=== PATIENT | male | born 1960 | race Caucasian/White ===

== ENCOUNTER 2018-04-21 08:00 | Outpatient (CLI) | payer OTHER ==
[2018-04-21 17:22] LABS: BASOPHILS % (AUTO) 0.7 %; EOSINOPHILS # (AUTO) 0.2 10^3/uL (0.0-0.7); HGB - HEMOGLOBIN 14.2 g/dL (14.0-18.0); LYMPHOCYTES # (AUTO) 1.6 10^3/uL (1.5-3.5); LYMPHOCYTES % (AUTO) 26.7 %; MEAN CORPUSCULAR HEMOGLOBIN 29.6 pg (27.0-31.0); MEAN CORPUSCULAR HGB CONC 32.3 g/dL (32.0-36.0); MEAN CORPUSCULAR VOLUME 91.7 fL (80.0-94.0); MEAN PLATELET VOLUME 8.8 fL (7.4-11.4); MONOCYTES # (AUTO) 0.4 10^3/uL (0.0-1.0); MONOCYTES % (AUTO) 6.2 %; NEUTROPHILS # (AUTO) 3.8 10^3/uL (1.5-6.6); NEUTROPHILS % (AUTO) 63.4 %; PLT - PLATELET COUNT 211 10^3/uL (130-450); RED BLOOD COUNT 4.78 10^6/uL (4.70-6.10)
[2018-04-21 18:38] LABS: ALBUMIN/GLOBULIN RATIO 1.2 (1.0-2.2); ALKALINE PHOSPHATASE 79 IU/L (42-121); ALT ALANINE AMINOTRANSFERASE 29 IU/L (10-60); AST ASPARTATE AMINOTRANSFERASE 32 IU/L (10-42); BILIRUBIN,TOTAL 0.9 mg/dL (0.2-1.0); BUN - BLOOD UREA NITROGEN 21 mg/dL (6-20); CARBON DIOXIDE - CO2 25 mmol/L (21-32); CHLORIDE 105 mmol/L (101-111); CHOLESTEROL 265 mg/dL; CREATININE 0.9 mg/dL (0.6-1.2); GFR - MDRD 87 (>89); GLUCOSE 90 mg/dL (70-100); HDL CHOLESTEROL 67 mg/dL; LDL CHOLESTEROL,CALCULATED 168 mg/dL; LDL/HDL RATIO 2.5 (<3.6); SODIUM 136 mmol/L (135-145); TOTAL PROTEIN 7.3 g/dL (6.7-8.2); VLDL CHOLESTEROL 30 mg/dL
[2018-04-21 19:46] LABS: HB2 TOTAL 15.2 g/dL; HEMOGLOBIN A1C 0.59 g/dL; HEMOGLOBIN A1C % 5.7 % (4.6-6.2)
== END 2018-04-21 08:01 | disposition home or self-care (01) ==
LOC: LAB.S 08:00
PROVIDERS: ATTEND Nurse Practitioner Family
DX: R03.0 Elevated blood-pressure reading, without diagnosis of hypertension (principal); Z13.220 Encounter for screening for lipoid disorders; Z13.1 Encounter for screening for diabetes mellitus; Z13.0 Encounter for screening for diseases of the blood and blood-forming organs and certain disorders involving the immune mechanism; Z12.5 Encounter for screening for malignant neoplasm of prostate
CPT/HCPCS: 36415; 80053; 80061; 83036; 83721; 84153; 84443; 85025

== ENCOUNTER 2018-07-21 07:18 | Day surgery (SDC) | payer OTHER ==
[2018-07-21] MEDS ORDERED: LACTATED RINGERS 1,000 ML IV ONE (07:49)
[2018-07-21] MEDS ORDERED: fentaNYL 250 MCG/5 ML VIAL IVP ONE (09:00)
[2018-07-21] MEDS ORDERED: MIDAZOLAM 2 MG/2 ML VIAL IVP ONE (09:00)
[2018-07-21 09:21] VITALS: BP 140/83
== END 2018-07-21 07:19 | disposition home or self-care (01) ==
LOC: SDS 07:18
PROVIDERS: ATTEND Surgery
PROC: 0DBE8ZZ Excision of Large Intestine, Via Natural or Artificial Opening Endoscopic (ICD-10-PCS; principal; 2018-07-21 08:15)
DX: Z12.11 Encounter for screening for malignant neoplasm of colon (principal); D12.2 Benign neoplasm of ascending colon; I10 Essential (primary) hypertension; K64.8 Other hemorrhoids; Z87.891 Personal history of nicotine dependence
CPT/HCPCS: 45380; J3010; J7120

== ENCOUNTER 2019-05-18 11:44 | Outpatient (CLI) | payer OTHER ==
[2019-05-18 12:51] VITALS: BP 110/70
--- NOTE | 2019-05-18 12:51 | SLEEP CARE CONSULTATION ---
Information from patient questionnaire entered by Patti Emery. I have reviewed and concur with the information entered by Patti Emery. This document represents the service I personally performed and the decisions made by me, Georgina Quintanilla MD, [facility]. History of Present Illness Reason for Visit: New patient Chief Complaint: reports: Snoring, Observed pauses in breathing Duration of Symptoms: 2-3 YEARS Usual bedtime: 10:00-11:00 PM Time it takes to fall asleep: 10-15 MINUTES Snores at night: Yes Observed to quit breathing while asleep: Yes Sleeps alone due to snoring: Yes Number of times waking at night: 1-2 Reasons for waking at night: reports: Bathroom Toss, Turn, or Twitch while sleeping: No Usually gets out of bed at: 6:45 AM Feels refreshed in the morning: No Morning headache: No Sleepy or fatigued during the day: No Ever fallen asleep while driving: No Takes day naps: No Dreams during day naps: No Prior sleep studies: No Additional HPI information: I had the pleasure of seeing Mr. Kingston today regarding the possibility of him having a sleep disorder. As you know, he is a 59 year old gentleman who complains of loud snore, observed apneas, unrefreshed sleep, and excessive daytime sleepiness. He has woken up from his own snore. He also has hypertension. 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 Patient is and lives in [place]. Have you smoked in the past 12 months: No Alcohol use: Yes Alcohol amount and frequency: 1-2 DRINKS/WEEK Caffeine use: Yes Caffeine amount and frequency: 1-2 CUPS/DAY Family History Family history of sleep disordered breathing: Yes Family Hx Sleep Apnea: Sibling: Snoring Review of Systems Cardiovascular: denies: palpitations, chest pain, irregular heart rate or pulse, leg or foot swelling, have to sleep sitting up, other Respiratory: denies: shortness of breath, wheeze, sputum production, chronic cough, other Gastrointestinal: denies: heartburn, difficulty swallowing, nausea, vomitting, diarrhea, abdominal pain, other Urinary: denies: incontinence, frequency, urgency, impotence, other Neurological: denies: headaches, seizure, head trauma, disorientation, speech dysfunction, gait or balance problems, fainting or unconsciousness, other Psychiatric: denies: Attention Deficit Hyperactivity, anxiety, depression, mood disorder, claustrophobia, other Ear/Nose/Throat: denies: nasal congestion, sinus problems, nose bleeds, dry mouth/throat, hoarseness, injury to nose, tonsillectomy, wisdom teeth removed, other Endocrine: denies: thyroid disease, history of goiter, sluggishness, too hot or cold, excessive thirst, increased appetite, increased urination, unexplained weakness, other Musculoskeletal: reports: back pain, muscle pain or cramping Immunologic: reports: allergies to food or environment (HAY FEVER) Physical Exam Vital signs obtained and entered by: Dr. Quintanilla Blood Pressure: 110/70 Cuff size: long Heart Rate: 58 O2 Saturation: 98 Height: 5 ft 10 in Weight (kg): 135.171 kg Body Mass Index: 42.7 BMI Classification: Class 3 Neck circumference: 18 HEENT: No craniofacial malformation Nostrils: patent to airflow Turbinates: normal Septum: midline Mouth and throat: narrow oropharynx Soft palate: long Hard palate: normal Uvula: normal Uvula visualization: 50% Mallampati Class II Tongue: enlarged in size with teeth nunes on lateral edges Tonsils: small Chin and jaw: normal size and position Neck: normal w/o lymphadenopathy or thyromegaly Heart: regular rate and rhythm Lungs: clear bilaterally Abdomen: soft Extremities: 1+ edema Neurologic: intact Impression and Plan IMPRESSION: 1. Obstructive Sleep Apnea-Hypopnea Syndrome, as suggested by history of loud and irregular snoring, observed cessation of breath while asleep, unrefreshed sleep, and daytime hypersomnolence. Narrow oropharynx and obesity are common predisposing factors for obstructive sleep apnea-hypopnea syndrome. Untreated obstructive sleep apnea can also cause hypertension. Pathophysiology of sleep-disordered breathing was discussed. I recommend proceeding to polysomnography to confirm the diagnosis and to assess severity. If he has significant sleep disordered breathing, a manual CPAP titration study will also be performed to find the optimal treatment pressure. I informed the patient of what the sleep studies involve and after some discussion, he agreed to proceed. Plan: 1. Schedule polysomnography + manual CPAP titration study. 2. Avoid long distance driving or when feeling sleepy. 3. Avoid alcohol, sedative and muscle relaxant around bedtime. 4. Attempt to lose weight. 5. Return for full face mask after the sleep studies I spent 100% of this 15 minute visit face to face with the patient with greater than 50% of this was spent time counseling the patient and coordination of care.
== END 2019-05-18 11:45 | disposition home or self-care (01) ==
LOC: SC 11:44
PROVIDERS: ATTEND Internal Medicine Pulmonary Disease
DX: G47.10 Hypersomnia, unspecified (principal); G47.8 Other sleep disorders; R06.81 Apnea, not elsewhere classified; R06.83 Snoring
CPT/HCPCS: 99203; 99212

== ENCOUNTER 2019-05-31 19:03 | Outpatient (CLI) | payer OTHER | END 2019-05-31 19:04 | disposition home or self-care (01) | LOC: SC 19:03 | PROVIDERS: ATTEND Internal Medicine Pulmonary Disease | DX: G47.33 Obstructive sleep apnea (adult) (pediatric) (principal); G47.61 Periodic limb movement disorder; E66.9 Obesity, unspecified; Z68.41 Body mass index [BMI] 40.0-44.9, adult | CPT/HCPCS: 95810 ==

== ENCOUNTER 2019-06-10 14:57 | Outpatient (CLI) | payer OTHER ==
--- NOTE | 2019-06-10 14:32 | SLEEP CARE CONSULTATION ---
Information from patient questionnaire entered by Madelyn Grove. I have reviewed and concur with the information entered by Madelyn Grove. This document represents the service I personally performed and the decisions made by me, Kimmie Simmons RN, MSN, [employer]. History of Present Illness Initial [place] Sleepiness Scale score: 5 Current [place] Sleepiness Scale score: 4 Additional HPI information: MARY SHAW returns for follow up of the recently performed polysomnography and informed of the polysomnography findings. I explained the pathophysiology behind obstructive sleep apnea. We then spent quite a bit of time discussing different treatment options. For mild obstructive sleep apnea, surgery and oral appliance are alternatives to nasal CPAP therapy but in moderate or severe cases, nasal CPAP is the most effective and reliable treatment. I reviewed the impact of weight changes on sleep apnea and strongly recommended losing weight. After some discussion, the patient opted to go with the nasal CPAP therapy. Nasal autoCPAP set at [id number] will be ordered until a manual titration study can be completed to find optimal pressure. I explained how CPAP machine works with sample devices Respironics Dreamstation and [employer] [id number] and what to expect when using the machine. Patient prefers the Respironics device. Using CPAP every night in order to get used to it was emphasized. Patient advised to put CPAP mask on before getting into bed so as not to fall asleep without CPAP. To assist acclimation to CPAP use, it could also be used for a short time during day while reading or watching TV. The patient was instructed to call the CPAP supplier to discuss any mechanical problem that may occur. If the mask given is uncomfortable or is difficult to keep on through the night even with adjustment, contact the CPAP supplier as many will replace with another mask style if notified before 30 days. If snoring or perceives is not getting enough air or too much air from the machine, notify this office. AAS patient education PAP tips reviewed and given to patient. Patient counseled not drink alcohol less than 4 hours before bedtime as it can increase snoring and apnea. Patient was cautioned about risks of drowsy driving until sleepiness symptoms resolve. Patient denies drowsy driving. AAS patient education on snoring and sleep apnea given and reviewed. Sleep Study - Polysomnography Polysomnography findings: The quality of the study is good. The patient had slightly reduced sleep efficiency due to frequent awakenings sleep onset insomnia. The sleep architecture was abnormal for sleep fragmentation and lack of slow wave sleep (N3). Respiratory monitoring showed very severe obstructive sleep apnea-hypopnea (AHI = 86.3) associated with frequent arousals, oxyhemoglobin desaturation and mild hypoxia (jared oxygen saturation of 68%). The respiratory events occurred independently of sleep stage and body position (supine AHI = 86.1; non-supine = 93.33). Snore loud in intensity. There was mild periodic leg movement of sleep not contributing to the sleep fragmentation. Cardiac rhythm was normal sinus rhythm without significant arrhythmia. No abnormal behavior (parasomnia) observed during the night. Allergies and Home Medications Known drug allergies: No Home medication list reviewed: Yes Allergy and home medication list: losartan 50mg daily pravastatin daily metformin 500mg daily prednisolone eye drop daily for cataract surgery Review of Systems Review of systems same as previous: Yes Physical Exam Blood Pressure: 120/70 Cuff size: long Heart Rate: 77 O2 Saturation: 98 Height: 5 ft 8.75 in Weight (kg): 291 lb 3.2 oz Body Mass Index: 43.3 BMI Classification: Class 3 Impression and Plan 1. Obstructive Sleep Apnea-Hypopnea Syndrome, very severe, with lowest oxygen saturation of 68%. Obviously this is the cause of the patients symptoms of unrefreshed sleep, and daytime fatigue. Positive pressure therapy could benefit his hypertension. As mentioned above, the patient will be started on nasal autoCPAP therapy with pressure set at 4-15 cmH2O until a manual titration study will be completed to find optimal pressure mode and setting. Compliance guidelines also reviewed. A copy of compliance guidelines will be given for reference at check out. Because apnea is severe in all positions of sleep, he is advised that sleeping with head of bed elevated 30-40 degrees can reduce some apnea risk until he can start CPAP therapy. Due to severity of apnea and hypoxia, I put an urgent request for set up. 2. Periodic limb movement, mild, that did not fragment patients sleep. Periodic limb movement of sleep (PLMS) is characterized by episodes of repetitive limb movements that occur during sleep and usually involve the lower limbs. The etiology is unknown but can be associated with restless leg syndrome (RLS), neuropathy, spinal cord diseases, kidney disease, rheumatological disorders, narcolepsy, obstructive sleep apnea, and REM sleep behavior disorder. Other factors that can increase PLMS and/or RLS are heredity and iron deficiency as reflected by a low serum ferritin level below 50 to 75mcg / L. Several medications can precipitate or aggravate PLMS such as selective serotonin re- uptake inhibitor antidepressants, tricyclic antidepressants, lithium, and dopamine receptor antagonists with the exception of bupropion. Caffeine can also aggravate PLMS and should be avoided. Sleep hygiene methods can also improve sleep as well as lifestyle changes such as regular exercise. Patient was advised that no treatment is needed at this time. If symptoms increase, then further evaluation is indicated. Patient states he was having low back and sciatica pain that night and difficulty to find a position of comfort initially. * Nasal auto CPAP therapy, pressure at 4-15 cm H2O. * Attempt to lose weight. * Avoid alcohol consumption near bedtime. * schedule titration study. * The patient is again cautioned about driving until sleepiness completely resolves. * Return one month after CPAP obtained. I will assess response to therapy and compliance at that time. I spent 100% of this 43 minute visit face to face with the patient with greater than 50% of this was spent time counseling the patient and coordination of care.
[2019-06-10 15:26] VITALS: BP 120/70
== END 2019-06-10 14:58 | disposition home or self-care (01) ==
LOC: SC 14:57
PROVIDERS: ATTEND Nurse Practitioner Family
DX: G47.33 Obstructive sleep apnea (adult) (pediatric) (principal); G47.61 Periodic limb movement disorder
CPT/HCPCS: 99212; 99215

== ENCOUNTER 2019-06-28 20:20 | Outpatient (CLI) | payer OTHER | END 2019-06-28 20:21 | disposition home or self-care (01) | LOC: SC 20:20 | PROVIDERS: ATTEND Internal Medicine Pulmonary Disease | DX: G47.33 Obstructive sleep apnea (adult) (pediatric) (principal); G47.61 Periodic limb movement disorder; G47.63 Sleep related bruxism | CPT/HCPCS: 95811 ==

== ENCOUNTER 2019-08-03 10:49 | Outpatient (CLI) | payer OTHER | END 2019-08-03 10:50 | disposition home or self-care (01) | LOC: SC 10:49 | PROVIDERS: ATTEND Nurse Practitioner Family | DX: Z53.9 Procedure and treatment not carried out, unspecified reason (principal) ==

== ENCOUNTER 2019-08-17 10:33 | Outpatient (CLI) | payer OTHER ==
[2019-08-17 12:20] VITALS: BP 130/82
--- NOTE | 2019-08-17 12:20 | SLEEP CARE CONSULTATION ---
Information from patient questionnaire entered by Madelyn Grove. I have reviewed and concur with the information entered by Madelyn Grove. This document represents the service I personally performed and the decisions made by me, Kimmie Simmons, RN, MSN, OUTGOING INSPECTOR. History of Present Illness Previous diagnosis: Very Severe, Obstructive Sleep Apnea-Hypopnea Syndrome AHI: 86.1 Reason for follow up: first compliance, with manual titration Equipment type: CPAP Equipment obtained from: [facility] Mask style: Nasal pillows Mask brand: Respironics Backup mask available: No Last cushion change: not since set up Sleep Study - Polysomnography Polysomnography findings: The quality of the study is good. CPAP was initiated at 4 cmH2O and titrated up to CPAP at 13 cmH2O. CPAP at 9 cmH2O appeared to be optimal (AHI of 0 per hour on the pressure). There was supine REM sleep on the pressure. Oxygen saturation was normal throughout the night. Lower CPAP settings allowed frequent residual respiratory events. The patient appeared to have tolerated positive ai rway pressure therapy well. The patients sleep efficiency was slightly reduced a few awakenings after the sleep onset. The sleep architecture was abnormal for sleep fragmentation and reduced amount of time spent in slow wave sleep (N3). There was severe periodic limb movement of sleep contributing to the sleep fragmentation. Cardiac rhythm was normal sinus rhythm without significant arrhythmia. No abnormal behavior (parasomnia) observed during the night except for bruxism. CPAP Compliance Data - Data Reviewed with Patient Average duration of nightly device use: 6.45 Compliance rate %: 90 Current pressure setting (cmH2O): 4-15 Humidity setting: off Average residual AHI: 5.0 Central apnea: 0.5 Obstructive apnea: 1.9 Hypopnea: 2.6 Average large leak: 1 min 20 sec Subjective Missed days of use due to: reports: illness Patient concerns: reports: nasal congestion (intermittently ), dry mouth, nose, throat (nose and mouth ). denies: aerophagia, mask discomfort, air blowing in eyes, mask leak noise, condensation in mask/hose, epistaxis Observed to snore while using device: No Current pressure setting perceived as: too high (weekly) On therapy, patient: reports: sleeping better, awakening more refreshed, being more awake and alert during the day, more rested overall. denies: drowsiness while driving Initial [place] Sleepiness Scale score: 5 Current [place] Sleepiness Scale score: 2 Allergies and Home Medications Known drug allergies: No Home medication list reviewed: Yes (no changes) Review of Systems Review of systems same as previous: Yes Physical Exam Blood Pressure: 130/82 Cuff size: long Heart Rate: 72 O2 Saturation: 98 Height: 5 ft 10 in Weight: 292 lb 9.6 oz Body Mass Index: 42.0 BMI Classification: Obesity Class 3 Impression and Plan 1. Obstructive Sleep Apnea-Hypopnea Syndrome, very severe, with good treatment compliance and slightly elevated residual AHI. On CPAP therapy, the patient has better sleep quality and is more rested overall. His manual titration study showed that optimal pressure was 9cmH20 but snoring noted mildly and 90% pressure is 12. 4cmH20. Thus I will change his autoCPAP to [id number]. This pressure change should also reduce waking to too high of pressure. He is to contact me if pressure change uncomfortable. For nasal dryness weekly, he is advised to use saline nasal spray daily before CPAP instead of as needed. In addition, he can try a low setting of humidity as discussed to see tolerates better and only add the heated hose if condensation. He is also to update his mask cushions regularly to maintain seal and comfort of mask. Patient would like to lose about 50 pounds to reduce his obesity. I explained how significant weight loss will not only reduce his obesity AHI but will reduce his apnea risk and CPAP pressure requirements and overall health risks. Symptoms to report for further CPAP pressure adjustment discussed. Patient's apnea severity and rationale for treatment to reduce apnea, improve sleep quality and reduce cardiovascular and cerebrovascular events was reviewed. I also reviewed the benefit of consistent device use of CPAP for his hypertension. 2. Periodic limb movement, severe, that did fragment patients sleep. As noted at last visit Periodic limb movement of sleep (PLMS) is characterized by episodes of repetitive limb movements that occur during sleep and usually involve the lower limbs and can be associated with several medical conditions. Patient's back pain was increased night of sleep study due to need to sleep supine. He likes to sleep mainly on left side at home which is more comfortable to sleep as less back pain. Patient was advised that no treatment is needed at this time. If symptoms increase, then further evaluation is indicated. 3. Bruxism, patient advised to follow up with dentist for further evaluation as can affect teeth. . * Change CPAP pressure to 10-12 cmH2O * Adjust humidity * Use saline nasal spray daily as directed. * Notify me if snoring with mask or feeling that the pressure is too much or too little * Attempt to lose weight * Follow up with dentist re bruxism. * Return for follow up in 3 months , or sooner if concerns arise I spent 100% of this 40 minute visit face to face with the patient with greater than 50% of this was spent time counseling the patient and coordination of care.
== END 2019-08-17 10:34 | disposition home or self-care (01) ==
LOC: SC 10:33
PROVIDERS: ATTEND Nurse Practitioner Family
DX: G47.33 Obstructive sleep apnea (adult) (pediatric) (principal); G47.61 Periodic limb movement disorder; G47.63 Sleep related bruxism; E66.9 Obesity, unspecified; Z68.41 Body mass index [BMI] 40.0-44.9, adult
CPT/HCPCS: 99212; 99215

== ENCOUNTER 2019-10-19 12:23 | Outpatient (CLI) | payer OTHER ==
[2019-10-19 17:18] LABS: BASOPHILS % (AUTO) 0.8 %; EOSINOPHILS # (AUTO) 0.1 10^3/uL (0.0-0.7); EOSINOPHILS % (AUTO) 2.2 %; HGB - HEMOGLOBIN 14.1 g/dL (14.0-18.0); LYMPHOCYTES # (AUTO) 1.9 10^3/uL (1.5-3.5); LYMPHOCYTES % (AUTO) 37.9 %; MEAN CORPUSCULAR HEMOGLOBIN 29.3 pg (27.0-31.0); MEAN CORPUSCULAR VOLUME 91.5 fL (80.0-94.0); MEAN PLATELET VOLUME 10.1 fL (7.4-11.4); MONOCYTES # (AUTO) 0.3 10^3/uL (0.0-1.0); MONOCYTES % (AUTO) 6.5 %; NEUTROPHILS # (AUTO) 2.6 10^3/uL (1.5-6.6); NEUTROPHILS % (AUTO) 52.6 %; PLT - PLATELET COUNT 265 10^3/uL (130-450); RED BLOOD COUNT 4.81 10^6/uL (4.70-6.10); WHITE BLOOD COUNT 4.9 x10^3/uL (4.8-10.8)
[2019-10-19 17:46] LABS: ALBUMIN 4.2 g/dL (3.2-5.5); ALBUMIN/GLOBULIN RATIO 1.3 (1.0-2.2); ALKALINE PHOSPHATASE 65 IU/L (42-121); ALT ALANINE AMINOTRANSFERASE 28 IU/L (10-60); AST ASPARTATE AMINOTRANSFERASE 25 IU/L (10-42); BILIRUBIN,TOTAL 0.8 mg/dL (0.2-1.0); BUN - BLOOD UREA NITROGEN 19 mg/dL (6-20); CALCIUM 9.1 mg/dL (8.5-10.3); CARBON DIOXIDE - CO2 25 mmol/L (21-32); CHLORIDE 106 mmol/L (101-111); CHOL/HDL RATIO 3.2 (<5.0); CHOLESTEROL 221 mg/dL; CREATININE 0.9 mg/dL (0.6-1.2); GFR - MDRD 87 (>89); GLUCOSE 96 mg/dL (70-100); HDL CHOLESTEROL 69 mg/dL; LDL CHOLESTEROL,CALCULATED 134 mg/dL; LDL/HDL RATIO 1.9 (<3.6); SODIUM 139 mmol/L (135-145); TOTAL PROTEIN 7.4 g/dL (6.7-8.2); VLDL CHOLESTEROL 18 mg/dL
[2019-10-19 17:52] LABS: HB2 TOTAL 14.4 g/dL; HEMOGLOBIN A1C 0.61 g/dL
== END 2019-10-19 12:24 | disposition home or self-care (01) ==
LOC: LAB.S 12:23
PROVIDERS: ATTEND Registered Nurse
DX: E88.81 Metabolic syndrome and other insulin resistance (principal); R06.83 Snoring; E78.5 Hyperlipidemia, unspecified
CPT/HCPCS: 36415; 80053; 80061; 83036; 83721; 85025

== ENCOUNTER 2019-11-16 12:45 | Outpatient (CLI) | payer OTHER ==
[2019-11-16 13:38] VITALS: BP 140/90
--- NOTE | 2019-11-16 13:38 | SLEEP CARE CONSULTATION ---
Information from patient questionnaire entered by Madelyn Grove. I have reviewed and concur with the information entered by Madelyn Grove. This document represents the service I personally performed and the decisions made by me, Kimmie Simmons, RN, MSN, [employer] OPPORT[employer]ITY OFFICER. History of Present Illness Previous diagnosis: Very Severe, Obstructive Sleep Apnea-Hypopnea Syndrome AHI: 86.1 Reason for follow up: three month Equipment type: CPAP Equipment obtained from: [facility] Mask style: Nasal pillows Backup mask available: No (keep current mask as a spare ) Last cushion change: not since set up has he obtained new supplies or has been contacted by [facility] HPI additional information: The new CPAP pressure range resolved snoring. Nasal dryness reduced with use of saline nasal spray. He is also now using the humidifier and is more comfortable. Metformin started and to check lab studies in 3 months but prescription ran out. CPAP Compliance Data - Data Reviewed with Patient Average duration of nightly device use: 6.7 Compliance rate %: 94.4 (pressure not changed to [id number] as ordered ) Current pressure setting (cmH2O): 4-15 Humidity settin Heated hose settin Average residual AHI: 5.7 Central apnea: 0.4 Obstructive apnea: 2.3 Hypopnea: 3.1 Average large leak: 1 min 52 sec Subjective Patient concerns: reports: other (headgear strap coming loose. ). denies: aerophagia, mask discomfort, air blowing in eyes, mask leak noise, condensation in mask/hose, nasal congestion, dry mouth, nose, throat, epistaxis Observed to snore while using device: No Current pressure setting perceived as: comfortable On therapy, patient: reports: being more awake and alert during the day, more rested overall. denies: drowsiness while driving Initial [place] Sleepiness Scale score: 5 Current [place] Sleepiness Scale score: 3 Allergies and Home Medications Known drug allergies: No Home medication list reviewed: Yes (Flonase as needed. Metformin stopped and restarted due ) Physical Exam Blood Pressure: 140/90 (138/85-90 home range ) Cuff size: long Heart Rate: 68 O2 Saturation: 98 Height: 5 ft 10 in Weight: 290 lb 9.6 oz Weight change since last visit: lost 2 pounds Body Mass Index: 41.7 BMI Classification: Obesity Class 3 Impression and Plan 1. Obstructive Sleep Apnea-Hypopnea Syndrome, very severe , with good treatment compliance and slightly elevated residual AHI . On CPAP therapy, the patient has better sleep quality and is more rested overall. His autoCPAP pressure was not changed as ordered and could be cause of residual AHI. Thus I showed him how to check if pressure changed on sample device and to contact this office if not done in a week. He is also to let me know if pressure change uncomfortable. He has yet to be contacted by [employer] for supplies and none have been replaced. I gave him [employer]'s supply reference equipment replacement sheet which has number to call. If he calls and no response, call here. I also showed him how to upload modem data on sample device as no data in 7 days. Patient's apnea severity and rationale for treatment to reduce apnea, improve sleep quality and reduce cardiovascular and cerebrovascular events was reviewed. I also reviewed the benefit of consistent device use of CPAP for hypertension. * * Change CPAP pressure to 10-12 cmH2O * Contact [facility] re supplies * Notify me if snoring with mask or feeling that the pressure is too much or too little * Continue to lose weight * Contact PCP re metformin prescription refill until his next lab appointment and follow up there. * Call this office if any problems using CPAP * Return for follow up in 1-2 months , or sooner if concerns arise Time Spent with Patient (minutes): 30 I spent 100% of this visit face to face with the patient with greater than 50% of this was spent time counseling the patient and coordination of care.
== END 2019-11-16 12:46 | disposition home or self-care (01) ==
LOC: SC 12:45
PROVIDERS: ATTEND Nurse Practitioner Family
DX: G47.33 Obstructive sleep apnea (adult) (pediatric) (principal); E66.9 Obesity, unspecified; Z68.41 Body mass index [BMI] 40.0-44.9, adult
CPT/HCPCS: 99212; 99214

== ENCOUNTER 2020-02-08 11:53 | Outpatient (CLI) | payer OTHER ==
--- NOTE | 2020-02-09 11:04 | XRAY Report ---
Reason: RADICULOPATHY AFFECTING THE ARM, DJD, LUMBO SPINE Procedure Date: 02/08/2020 Accession Number: [id number] / [id number] Procedure: XR - Cervical Spine 2 View CPT Code: Final Report FULL RESULT: EXAM: CERVICAL SPINE RADIOGRAPHY EXAM DATE: 02/08/2020 12:22 PM. CLINICAL HISTORY: Radiculopathy affecting the arm, DJD, chronic neck pain with pain radiating down arms. COMPARISONS: None. TECHNIQUE: 3 views. FINDINGS: Alignment: Slight levoscoliosis of the cervical spine. Bones: No acute fracture or bony lesion. Odontoid is intact. Mild to moderate degenerative spurring greatest at C5, C6 and C7. Disks: Mild disk space narrowing at C4-C5 and moderate narrowing at C5-C6 and C6-C7. Facets: Mild to moderate cervical facet arthropathy. Soft Tissues: Normal. No prevertebral soft tissue swelling. The visualized lung apices are clear. IMPRESSION: 1. Mild to moderate intervertebral disk degenerative changes greatest C5-C6 and C6-C7. 2. Mild to moderate facet arthropathy. RADIA
--- NOTE | 2020-02-09 11:04 | XRAY Report ---
Reason: RADICULOPATHY AFFECTING THE ARM, DJD, LUMBO SPINE Procedure Date: 02/08/2020 Accession Number: [id number] / [id number] Procedure: XR - Thoracic Spine 2 View CPT Code: Final Report FULL RESULT: EXAM: THORACIC SPINE RADIOGRAPHY EXAM DATE: 02/08/2020 12:22 PM. CLINICAL HISTORY: Radiculopathy affecting the arm, degenerative joint disease, chronic neck and back pain with pain radiating down arms. COMPARISON: None. TECHNIQUE: 2 views. FINDINGS: Alignment: Mild dextroscoliosis of the mid thoracic spine. Bones: No acute fracture or bony lesion. Multifocal degenerative osteophyte formation. Disks: Multilevel mild to moderate disk space narrowing throughout the thoracic spine. Soft Tissues: Normal. The visualized lungs and cardiomediastinal silhouette are normal. IMPRESSION: 1. Mild to moderate multilevel intervertebral disk degenerative changes of the thoracic spine. RADIA
--- NOTE | 2020-02-09 12:51 | XRAY Report ---
Reason: RADICULOPATHY AFFECTING THE ARM, DJD, LUMBO SPINE Procedure Date: 02/08/2020 Accession Number: [id number] / [id number] Procedure: XR - Lumbar Spine Complete CPT Code: Final Report FULL RESULT: EXAM: LUMBOSACRAL SPINE RADIOGRAPHY EXAM DATE: 02/08/2020 12:22 PM. CLINICAL HISTORY: Radiculopathy affecting the arm, DJD, lumbar spine. Chronic neck and back pain with pain rating down arms. COMPARISONS: None. TECHNIQUE: 4 views. FINDINGS: Alignment: Mild levoscoliosis of the lumbar spine. Grade 1 anterolisthesis of L4 on L5 measuring 2 mm. Bones: Five [id number] lumbar vertebral bodies are present. No acute fracture or bony lesion. Degenerative osteophyte formation. Disks: Mild to moderate multilevel disk space narrowing throughout the lumbar spine greatest at L2-L3, L4-L5 and L5-S1. Facets: Mild to moderate facet arthropathy. Sacroiliac Joints: Mild degenerative changes. Soft Tissues: Vascular calcifications. No bowel obstruction. IMPRESSION: 1. Mild to moderate intervertebral disk degenerative changes of the lumbar spine. 2. Grade 1 anterolisthesis of L4 on L5 likely due to facet arthropathy. [facility]
== END 2020-02-08 11:54 | disposition home or self-care (01) ==
LOC: DI 11:53
PROVIDERS: ATTEND Nurse Practitioner
DX: M47.812 Spondylosis without myelopathy or radiculopathy, cervical region (principal); M50.321 Other cervical disc degeneration at C4-C5 level; M51.34 Other intervertebral disc degeneration, thoracic region; M51.36 Other intervertebral disc degeneration, lumbar region; M47.816 Spondylosis without myelopathy or radiculopathy, lumbar region; M51.37 Other intervertebral disc degeneration, lumbosacral region; M43.16 Spondylolisthesis, lumbar region
CPT/HCPCS: 72040; 72070; 72110

== ENCOUNTER 2020-02-15 14:11 | Outpatient (CLI) | payer OTHER ==
--- NOTE | 2020-02-15 13:31 | SLEEP CARE CONSULTATION ---
Information from patient questionnaire entered by Patti Emery. I have reviewed and concur with the information entered by Patti Emery. This document represents the service I personally performed and the decisions made by me, Kimmie Simmons, RN, MSN, DENTAL CERAMIST HELPER. History of Present Illness Service Date and Time: 02/15/2020 1300 Previous diagnosis: Very Severe, Obstructive Sleep Apnea-Hypopnea Syndrome AHI: 86.3 Reason for follow up: three month (with pressure change) Equipment type: CPAP Equipment obtained from: [employer] (getting supplies online as needed as less expensive) Mask style: Nasal pillows Backup mask available: Yes (old mask ) Last cushion change: not since set up - just bought new one Type of Sleep Study: Polysomnography CPAP Compliance Data - Data Reviewed with Patient Average duration of nightly device use: 7H 16M Compliance rate %: 98.7 Current pressure setting (cmH2O): 10-12 Humidity settin Average residual AHI: 2.1 Average large leak: 1M 43S Subjective Patient concerns: denies: aerophagia, mask discomfort, air blowing in eyes, mask leak noise, condensation in mask/hose, nasal congestion, dry mouth, nose, throat, epistaxis Observed to snore while using device: No Current pressure setting perceived as: comfortable On therapy, patient: reports: sleeping better, awakening more refreshed, being more awake and alert during the day, more rested overall. denies: drowsiness while driving Initial [place] Sleepiness Scale score: 5 Current [place] Sleepiness Scale score: 1 Allergies and Home Medications Home medication list reviewed: No (no changes) Review of Systems Review of systems same as previous: No (carpal tunnel symptoms and low back pain / seeing PCP) Physical Exam Height: 5 ft 10 in Weight: 279 lb (home weight) Weight change since last visit: lost about 20 pounds Body Mass Index: 40.0 BMI Classification: Morbidly Obese Impression and Plan 1. Obstructive Sleep Apnea-Hypopnea Syndrome, very severe, with excellent treatment compliance and good apnea control. On CPAP therapy, the patient has better sleep quality and is more rested overall. He is very pleased with benefit of CPAP use and has started to lose weight, 20 pounds so far and reducing his BMI from 41.7 to 40. Continued weight loss will Currently patients BMI is 40 morbid obesity class. I discussed how obesity increases the risk of apnea, CPAP pressure requirements and overall health risks especially cardiovascular and diabetes. Thus patient is advised to continue to lose weight. Weight loss can be done with reducing portion size, reducing refined foods and balancing content with vegetables, fruit and protein. In addition tracking food intake will allow awareness of how to modify diet to achieve weight loss goals. Also eating more slowly will allow more awareness of food intake and enjoyment of food while assisting patient to modify intake at each meal. A diet consultation can be helpful in achieving optimal weight loss goals. The patient would like to reduce to 220 pounds. Patient encouraged to discuss their weight loss goals with their PCP and consider a referral to a sharepoint solutions architect with his spouse as a team effort. The patient's CPAP pressure range should accommodate some weight loss. Symptoms to report for additional pressure adjustment discussed. He is advised to contact [employer] in regard to his supplies and cost to see if he can reduce out of pocket expense. So far he feels it is less expensive to buy online. Patient's apnea severity and rationale for treatment to reduce apnea, improve sleep quality and reduce hypertension, cardiovascular and cerebrovascular events was reviewed. * Continue auto CPAP pressure at 10-12 cmH2O * Contact [employer] re supplies cost. * Notify me if snoring with mask or feeling that the pressure is too much or too little * continue to lose weight * Call this office if any problems using CPAP * Return for follow up in 6 months , or sooner if concerns arise Visit Type: Telehealth Video (to reduce risk of Covid 19 exposure) Video Type: [employer] Patient Location: Home Location of Provider: Home Patient agrees and consents to this telehealth visit type: Yes Patient agrees to have their insurance billed: Yes Time Spent with Patient (minutes): 26 Provider Statement: I spent 100% of the Telehealth Video Call with the patient with greater than 50% spent counseling the patient and coordination of care.
== END 2020-02-15 14:12 | disposition home or self-care (01) ==
LOC: SC 14:11
PROVIDERS: ATTEND Nurse Practitioner Family
DX: G47.33 Obstructive sleep apnea (adult) (pediatric) (principal); E66.01 Morbid (severe) obesity due to excess calories; Z68.41 Body mass index [BMI] 40.0-44.9, adult

== ENCOUNTER 2020-08-29 14:16 | Outpatient (CLI) | payer OTHER ==
--- NOTE | 2020-08-29 14:38 | SLEEP CARE CONSULTATION ---
Information from patient questionnaire entered by Antoinette Mcleod. I have reviewed and concur with the information entered by Antoinette Mcleod. This document represents the service I personally performed and the decisions made by , Emmy Bella ARNP. History of Present Illness Service Date and Time: 08/29/2020 141 Previous diagnosis: Very Severe, Obstructive Sleep Apnea-Hypopnea Syndrome AHI: 86.1 Reason for follow up: six month (followup) Equipment type: CPAP Equipment obtained from: [employer] (getting supplies as needed) Mask style: Nasal pillows Backup mask available: Yes (other mask) Last cushion change: 2 weeks Prior sleep studies: No HPI additional information: MARY SHAW was diagnosed to have very severe, AHI 86.1, obstructive sleep apnea-hypopnea syndrome and returned today for CPAP therapy six month follow-up. Sleep Study - Results Prior sleep studies: No CPAP Compliance Data - Data Reviewed with Patient Average duration of nightly device use: 7 h 51 min Compliance rate %: 98.9 Current pressure setting (cmH2O): 10-12 Humidity settin Average residual AHI: 1.9 Average large leak: 2 min 18 sec Subjective Patient concerns: denies: aerophagia, mask discomfort, air blowing in eyes, mask leak noise, condensation in mask/hose, nasal congestion, dry mouth, nose, throat, epistaxis, other Observed to snore while using device: No Current pressure setting perceived as: comfortable On therapy, patient: reports: sleeping better, awakening more refreshed, being more awake and alert during the day, more rested overall. denies: drowsiness while driving Initial [place] Sleepiness Scale score: 5 (in 2019) Current [place] Sleepiness Scale score: 2 Allergies and Home Medications Home medication list reviewed: Yes Allergy and home medication list: Gabapentin 300 mg amitriptyline 10 mg Review of Systems Review of systems same as previous: Yes (no changes) Physical Exam Heart Rate: 72 O2 Saturation: 98 Height: 5 ft 10 in Weight: 275 lb Body Mass Index: 39.4 BMI Classification: Obese Impression and Plan 1. Obstructive Sleep Apnea-Hypopnea Syndrome, very severe, with good treatment compliance and good apnea control. On CPAP therapy, the patient has better sleep quality and is more rested overall. He has no complaints or issues and if very comfortable with CPAP use. Patient's apnea severity and rationale for treatment to reduce apnea, improve sleep quality and reduce cardiovascular and cerebrovascular events was reviewed. I also reviewed the benefit of consistent device use of CPAP for hypertension, cardiac disease, and cerebrovascular disease. * Continue autoCPAP pressure at 10-12 cmH2O * Notify me if snoring with mask or feeling that the pressure is too much or too little * Attempt to lose weight * Call this office if any problems using CPAP * Return for follow up in 1 year, or sooner if concerns arise Counseling Topics: Spare mask, Weight loss health impact Visit Type: In Office Time Spent with Patient (minutes): 15 Provider Statement: I spent 100% of the Face to Face Visit with the patient with greater than 50% spent counseling the patient and coordination of care.
== END 2020-08-29 14:17 | disposition home or self-care (01) ==
LOC: SC 14:16
PROVIDERS: ATTEND Nurse Practitioner Family
DX: G47.33 Obstructive sleep apnea (adult) (pediatric) (principal); E66.9 Obesity, unspecified; Z68.39 Body mass index [BMI] 39.0-39.9, adult
CPT/HCPCS: 99212; 99213

== ENCOUNTER 2020-10-24 09:54 | Outpatient (CLI) | payer OTHER ==
[2020-10-24 15:35] LABS: BASOPHILS % (AUTO) 0.7 %; EOSINOPHILS # (AUTO) 0.1 10^3/uL (0.0-0.7); EOSINOPHILS % (AUTO) 2.6 %; HGB - HEMOGLOBIN 13.2 g/dL (14.0-18.0); LYMPHOCYTES # (AUTO) 1.7 10^3/uL (1.5-3.5); LYMPHOCYTES % (AUTO) 39.6 %; MEAN CORPUSCULAR HEMOGLOBIN 30.3 pg (27.0-31.0); MEAN CORPUSCULAR HGB CONC 32.7 g/dL (32.0-36.0); MEAN CORPUSCULAR VOLUME 92.9 fL (80.0-94.0); MEAN PLATELET VOLUME 10.3 fL (7.4-11.4); MONOCYTES # (AUTO) 0.3 10^3/uL (0.0-1.0); MONOCYTES % (AUTO) 7.3 %; NEUTROPHILS # (AUTO) 2.1 10^3/uL (1.5-6.6); NEUTROPHILS % (AUTO) 49.8 %; PLT - PLATELET COUNT 227 10^3/uL (130-450); RED BLOOD COUNT 4.35 10^6/uL (4.70-6.10); RED CELL DISTRIBUTION WIDTH 14.3 % (12.0-15.0); WHITE BLOOD COUNT 4.2 x10^3/uL (4.8-10.8)
[2020-10-24 16:03] LABS: ALBUMIN 4.3 g/dL (3.2-5.5); ALBUMIN/GLOBULIN RATIO 1.6 (1.0-2.2); ALKALINE PHOSPHATASE 63 IU/L (42-121); ALT ALANINE AMINOTRANSFERASE 30 IU/L (10-60); AST ASPARTATE AMINOTRANSFERASE 30 IU/L (10-42); BILIRUBIN,TOTAL 0.6 mg/dL (0.2-1.0); BUN - BLOOD UREA NITROGEN 22 mg/dL (6-20); CALCIUM 9.1 mg/dL (8.5-10.3); CARBON DIOXIDE - CO2 23 mmol/L (21-32); CHLORIDE 107 mmol/L (101-111); CHOLESTEROL 199 mg/dL; CREATININE 0.8 mg/dL (0.6-1.2); GLUCOSE 101 mg/dL (70-100); HDL CHOLESTEROL 67 mg/dL; LDL CHOLESTEROL,CALCULATED 113 mg/dL; LDL/HDL RATIO 1.7 (<3.6); SODIUM 137 mmol/L (135-145); VLDL CHOLESTEROL 19 mg/dL
[2020-10-24 20:30] LABS: HEMOGLOBIN A1c% 5.6 % (4.27-6.07)
== END 2020-10-24 09:55 | disposition home or self-care (01) ==
LOC: LAB.S 09:54
PROVIDERS: ATTEND Registered Nurse
DX: E88.81 Metabolic syndrome and other insulin resistance (principal); E66.01 Morbid (severe) obesity due to excess calories; R06.83 Snoring; E78.5 Hyperlipidemia, unspecified; I10 Essential (primary) hypertension
CPT/HCPCS: 36415; 80053; 80061; 83036; 83721; 84443; 85025

== ENCOUNTER 2022-02-17 10:00 | Outpatient (CLI) | payer OTHER ==
[2022-02-17 15:43] LABS: BASOPHILS % (AUTO) 0.5 %; EOSINOPHILS # (AUTO) 0.2 10^3/uL (0.0-0.7); EOSINOPHILS % (AUTO) 2.9 %; HCT - HEMATOCRIT 39.7 % (42.0-52.0); HGB - HEMOGLOBIN 12.9 g/dL (14.0-18.0); LYMPHOCYTES # (AUTO) 1.8 10^3/uL (1.5-3.5); LYMPHOCYTES % (AUTO) 30.8 %; MEAN CORPUSCULAR HEMOGLOBIN 29.9 pg (27.0-31.0); MEAN CORPUSCULAR HGB CONC 32.5 g/dL (32.0-36.0); MEAN CORPUSCULAR VOLUME 92.1 fL (80.0-94.0); MEAN PLATELET VOLUME 10.6 fL (7.4-11.4); MONOCYTES # (AUTO) 0.5 10^3/uL (0.0-1.0); MONOCYTES % (AUTO) 8.6 %; NEUTROPHILS # (AUTO) 3.3 10^3/uL (1.5-6.6); NEUTROPHILS % (AUTO) 56.9 %; PLT - PLATELET COUNT 232 10^3/uL (130-450); RED BLOOD COUNT 4.31 10^6/uL (4.70-6.10); RED CELL DISTRIBUTION WIDTH 13.7 % (12.0-15.0); WHITE BLOOD COUNT 5.8 x10^3/uL (4.8-10.8)
[2022-02-17 16:06] LABS: ALBUMIN 4.3 g/dL (3.2-5.5); ALBUMIN/GLOBULIN RATIO 1.5 (1.0-2.2); ALKALINE PHOSPHATASE 69 IU/L (42-121); ALT ALANINE AMINOTRANSFERASE 28 IU/L (10-60); AST ASPARTATE AMINOTRANSFERASE 29 IU/L (10-42); BILIRUBIN,TOTAL 0.9 mg/dL (0.2-1.0); BUN - BLOOD UREA NITROGEN 24 mg/dL (6-20); CALCIUM 9.4 mg/dL (8.5-10.3); CARBON DIOXIDE - CO2 23 mmol/L (21-32); CHLORIDE 106 mmol/L (101-111); CHOL/HDL RATIO 2.9 (<5.0); CHOLESTEROL 203 mg/dL; CREATININE 0.9 mg/dL (0.6-1.2); GFR - MDRD 86 (>89); GLUCOSE 95 mg/dL (70-100); HDL CHOLESTEROL 70 mg/dL; LDL CHOLESTEROL,CALCULATED 117 mg/dL; LDL/HDL RATIO 1.7 (<3.6); POTASSIUM 4.1 mmol/L (3.5-5.0); SODIUM 139 mmol/L (135-145); TOTAL PROTEIN 7.2 g/dL (6.7-8.2); TRIGLYCERIDES 79 mg/dL; VLDL CHOLESTEROL 16 mg/dL
[2022-02-17 16:16] LABS: THYROID STIMULATING HORMONE 1.03 uIU/mL (0.34-5.60)
[2022-02-17 20:31] LABS: ESTIMATED AVERAGE GLUCOSE 120 mg/dL (70-100); HEMOGLOBIN A1c% 5.8 % (4.27-6.07)
== END 2022-02-17 10:01 | disposition home or self-care (01) ==
LOC: LAB.S 10:00
PROVIDERS: ATTEND Registered Nurse
DX: I10 Essential (primary) hypertension (principal); E88.81 Metabolic syndrome and other insulin resistance; E78.5 Hyperlipidemia, unspecified; Z13.1 Encounter for screening for diabetes mellitus; Z12.5 Encounter for screening for malignant neoplasm of prostate
CPT/HCPCS: 36415; 80053; 80061; 83036; 83721; 84153; 84443; 85025

== ENCOUNTER 2022-02-19 08:45 | Outpatient (CLI) | payer OTHER ==
--- NOTE | 2022-02-19 10:01 | XRAY Report ---
PROCEDURE: Foot 2 View BILAT INDICATIONS: NUMBNESS OF FOOT, PLANTAR FASCITIS TECHNIQUE: 2 views of each foot were acquired. COMPARISON: None. FINDINGS: Bones: No acute fractures or dislocations. No suspicious bony lesions. Mild to moderate degenerati ve changes are seen at the first metatarsophalangeal joints bilaterally. Mild scattered degenerative changes are seen at the interphalangeal joints of the toes. Small ossifications at the lateral aspect of the right fifth proximal phalangeal base adjacent to the right medial malleolus are most likely t he sequela of remote prior trauma. Moderate bilateral plantar calcaneal enthesophytes are present. Sm all posterior calcaneal enthesophytes are also present. Soft tissues: Bilateral arterial vascular calcifications are present. IMPRESSION: 1.Bilateral calcaneal enthesophytes. 2.Scattered mild to moderate degenerative changes. 3.No acute osseous abnormality. If symptoms persist or there is continued clinical concern, further e valuation with MRI or CT may be helpful. Reviewed by: Elvis Eller MD on 02/19/2022 9:59 AM PDT Approved by: Elvis Eller MD on 02/19/2022 9:59 AM PDT Station ID: [id number]
[2022-02-19 14:51] LABS: ABSOLUTE RETICS # AUTO 0.059 10^6/uL (0.020-0.110); BASOPHILS # (AUTO) 0.1 10^3/uL (0.0-0.1); BASOPHILS % (AUTO) 0.8 %; EOSINOPHILS # (AUTO) 0.1 10^3/uL (0.0-0.7); EOSINOPHILS % (AUTO) 2.2 %; HCT - HEMATOCRIT 42.5 % (42.0-52.0); HGB - HEMOGLOBIN 13.7 g/dL (14.0-18.0); LYMPHOCYTES # (AUTO) 1.8 10^3/uL (1.5-3.5); LYMPHOCYTES % (AUTO) 29.9 %; MEAN CORPUSCULAR HGB CONC 32.2 g/dL (32.0-36.0); MEAN PLATELET VOLUME 10.5 fL (7.4-11.4); MONOCYTES # (AUTO) 0.5 10^3/uL (0.0-1.0); MONOCYTES % (AUTO) 8.5 %; NEUTROPHILS # (AUTO) 3.5 10^3/uL (1.5-6.6); NEUTROPHILS % (AUTO) 58.4 %; PLT - PLATELET COUNT 248 10^3/uL (130-450); RED BLOOD COUNT 4.57 10^6/uL (4.70-6.10); RED CELL DISTRIBUTION WIDTH 13.8 % (12.0-15.0); WHITE BLOOD COUNT 5.9 x10^3/uL (4.8-10.8)
[2022-02-19 15:16] LABS: % IRON SATURATION 12 % (20-50); IRON 37 ug/dL (45-182); TOTAL IRON BINDING CAPACITY 308 ug/dL (250-450); TRANSFERRIN 220 mg/dL (180-329)
[2022-02-19 15:44] LABS: FERRITIN 89.8 ng/mL (23.9-336.2)
[2022-02-19 15:47] LABS: FOLATE 19.37 ng/mL (5.90 - >24.8)
== END 2022-02-19 08:46 | disposition home or self-care (01) ==
LOC: DI.S 08:45
PROVIDERS: ATTEND Registered Nurse
DX: M77.32 Calcaneal spur, left foot (principal); M77.31 Calcaneal spur, right foot; M19.071 Primary osteoarthritis, right ankle and foot; M19.072 Primary osteoarthritis, left ankle and foot; D64.9 Anemia, unspecified
CPT/HCPCS: 36415; 81599; 82607; 82728; 82746; 83540; 84466; 85025; 85045

== ENCOUNTER 2023-01-09 08:00 | Outpatient (CLI) | payer OTHER | END 2023-01-09 23:59 | disposition home or self-care (01) | LOC: LAB.S 08:00 | PROVIDERS: ATTEND Physician Assistant Medical | DX: R10.9 Unspecified abdominal pain (principal) | CPT/HCPCS: 87086 ==

== ENCOUNTER 2023-11-27 09:47 | Outpatient (CLI) | payer OTHER ==
[2023-11-27 14:24] LABS: BASOPHILS % (AUTO) 0.6 %; EOSINOPHILS # (AUTO) 0.1 10^3/uL (0.0-0.7); EOSINOPHILS % (AUTO) 2.2 %; HCT - HEMATOCRIT 42.6 % (42.0-52.0); HGB - HEMOGLOBIN 13.3 g/dL (14.0-18.0); LYMPHOCYTES # (AUTO) 1.8 10^3/uL (1.5-3.5); LYMPHOCYTES % (AUTO) 28.4 %; MEAN CORPUSCULAR HEMOGLOBIN 29.6 pg (27.0-31.0); MEAN CORPUSCULAR HGB CONC 31.2 g/dL (32.0-36.0); MEAN CORPUSCULAR VOLUME 94.7 fL (80.0-94.0); MEAN PLATELET VOLUME 10.3 fL (7.4-11.4); MONOCYTES # (AUTO) 0.5 10^3/uL (0.0-1.0); MONOCYTES % (AUTO) 8.1 %; NEUTROPHILS # (AUTO) 3.8 10^3/uL (1.5-6.6); NEUTROPHILS % (AUTO) 60.4 %; PLT - PLATELET COUNT 252 10^3/uL (130-450); RED CELL DISTRIBUTION WIDTH 13.7 % (12.0-15.0); WHITE BLOOD COUNT 6.3 x10^3/uL (4.8-10.8)
[2023-11-27 15:57] LABS: ALBUMIN 4.4 g/dL (3.2-5.5); ALBUMIN/GLOBULIN RATIO 1.6 (1.0-2.2); ALKALINE PHOSPHATASE 73 IU/L (42-121); ALT ALANINE AMINOTRANSFERASE 30 IU/L (10-60); AST ASPARTATE AMINOTRANSFERASE 26 IU/L (10-42); BILIRUBIN,TOTAL 0.4 mg/dL (0.2-1.0); BUN - BLOOD UREA NITROGEN 23 mg/dL (6-20); CALCIUM 9.9 mg/dL (8.5-10.3); CARBON DIOXIDE - CO2 24 mmol/L (21-32); CHLORIDE 107 mmol/L (101-111); CHOL/HDL RATIO 3.1 (<5.0); CHOLESTEROL 209 mg/dL; GFR - MDRD 76 (>89); GLUCOSE 104 mg/dL (74-104); HDL CHOLESTEROL 68 mg/dL; LDL CHOLESTEROL,CALCULATED 118 mg/dL; LDL/HDL RATIO 1.7 (<3.6); POTASSIUM 4.1 mmol/L (3.5-4.5); SODIUM 138 mmol/L (135-145); TOTAL PROTEIN 7.2 g/dL (6.4-8.9); TRIGLYCERIDES 115 mg/dL (48-352); VLDL CHOLESTEROL 23 mg/dL
[2023-11-27 16:04] LABS: CREATININE,URINE 90.3 mg/dL
[2023-11-27 16:09] LABS: MICROALBUMIN,URINE < 0.7 mg/dL
[2023-11-27 20:50] LABS: ESTIMATED AVERAGE GLUCOSE 120 mg/dL (70-100); HEMOGLOBIN A1c% 5.8 % (4.27-6.07)
== END 2023-11-27 09:48 | disposition home or self-care (01) ==
LOC: LAB.S 09:47
PROVIDERS: ATTEND Registered Nurse
DX: E88.819 Insulin resistance, unspecified (principal); Z79.899 Other long term (current) drug therapy; Z13.220 Encounter for screening for lipoid disorders; Z12.5 Encounter for screening for malignant neoplasm of prostate
CPT/HCPCS: 36415; 80053; 80061; 82043; 82570; 83036; 83721; 84153; 85025